=== PATIENT | female | born 1950 | race Caucasian/White ===

== ENCOUNTER → 2019-12-14 | Outpatient (CLI) | payer MEDICARE ==
[~2019-12-14] MED LIST: ALL10TAB29 PO; ASPI81TA85 PO; CALC600T60 PO; FLAX10002 PO; HM P99TA PO; VITA40TA PO; VITAD1000T PO; VITATAB73 PO
== END ==
LOC: EDUNIT# 09:40 → M LABSMTC 09:44
PROVIDERS: ATTEND Anesthesiology
DX: Z01.818 Encounter for other preprocedural examination (principal); Z11.59 Encounter for screening for other viral diseases; Z03.818 Encounter for observation for suspected exposure to other biological agents ruled out
CPT/HCPCS: C9803; U0003

== ENCOUNTER 2019-12-17 09:28 | Day surgery (SDC) | payer MEDICARE ==
[~2019-12-17] VITALS: Ht 154.9 cm; Wt 83.4 kg
[~2019-12-17 09:28] MED LIST changes: +BUPIVACAINE/EPIN 0.25% 30 ML VIAL As Ordered ONE; +LR 1,000 ML IV ONE
[2019-12-17] MEDS ORDERED: ROCURONIUM BROMIDE 50 MG/5 ML VIAL As Ordered ONE (09:48)
[2019-12-17] MEDS ORDERED: fentaNYL 250 MCG/5 ML INJECTION (J3010) As Ordered ONE (09:48)
[2019-12-17] MEDS ORDERED: LIDOCAINE 2% 100MG/5ML SDV (FOR ANES.) As Ordered ONE (09:48)
[2019-12-17] MEDS ORDERED: propofoL 200 MG/20 ML VIAL As Ordered ONE (09:48)
[2019-12-17] MEDS ORDERED: MIDAZOLAM INJ 2MG/2ML VIAL (J2250 PER 1MG) As Ordered ONE (09:48)
[2019-12-17] MEDS ORDERED: SUCCINYLCHOLINE 100 MG/5 ML SYRINGE (J0330) As Ordered ONE (11:45)
[2019-12-17] MEDS ORDERED: ACETAMINOPHEN 1000MG 100ML IV BTL (OFIRMEV) (J0131 PER 10MG) As Ordered ONE (11:45)
[2019-12-17] MEDS ORDERED: KETOROLAC 60 MG/2 ML VIAL As Ordered ONE (11:46)
[2019-12-17] MEDS ORDERED: ONDANSETRON 4MG/2ML VIAL As Ordered ONE (11:46)
[2019-12-17] MEDS ORDERED: dexameTHASONE 4 MG/ML 1ML VIAL (J1100 PER 1MG) As Ordered ONE (11:46)
[2019-12-17] MEDS ORDERED: SUGAMMADEX SODIUM 500 MG/5 ML VIAL (BRIDION) As Ordered ONE (11:57)
[2019-12-17] MEDS ORDERED: fentaNYL 100 MCG/2 ML INJECTION (J3010) IV PRN (12:45)
[2019-12-17] MEDS ORDERED: LR 1,000 ML IV SCH (12:45)
[2019-12-17] MEDS ORDERED: NORCO, ANEXSIA 5/325MG TABLET (HYDROcodone/ACETAMINOPHEN) PO PRN (12:45)
[2019-12-17] MEDS ORDERED: ONDANSETRON 4MG/2ML VIAL IV PRN (12:45)
[2019-12-17] MEDS ORDERED: oxyCODONE 5MG TAB PO PRN (12:45)
[2019-12-17 14:30] VITALS: BP 137/82
--- NOTE | 2019-12-22 14:28 | RO ---
DATE OF PROCEDURE: 12/17/2019 PREOPERATIVE DIAGNOSIS: Symptomatic cholelithiasis. POSTOPERATIVE DIAGNOSIS: Symptomatic cholelithiasis. PROCEDURE: Robotic cholecystectomy. SURGEON: Dr. Long SOAP WORKER: Audrey Sharp NP ANESTHESIA: General. ESTIMATED BLOOD LOSS (EBL): 5. COMPLICATIONS: None. INDICATIONS FOR PROCEDURE: The patient is a 69-year-old female that presents with right upper quadrant pain and found have symptomatic cholelithiasis. Recommendation was to proceed with robotic cholecystectomy. Risks and benefits of procedure not limited but including bleeding, infection, hernia formation, damage to surrounding structure, need for further surgery were discussed in detail with the patient. Informed consent was obtained and procedure was planned. DESCRIPTION OF PROCEDURE: The patient was brought back to operating room #7. After sufficient sedation, the abdomen sterilely prepped and draped. Next, a time-out done to confirm proper patient and proper procedure. Following that an 8 mm incision was made in left lower quadrant. Veress needle inserted and the was abdomen was insufflated to 50 mmHg. Veress needle was then removed. An 8 mm robotic Optiview port used to gain access to the abdomen. Once the abdomen was entered, three more ports were placed across the upper abdomen. Once the ports were placed, the robot was docked to the ports. Next, the fundus of gallbladder was elevated up towards the right shoulder. The cystic duct and cystic artery were easily identified and they were both doubly clipped and cut. The gallbladder was then dissected free from the gallbladder fossa using electrocautery. Once the gallbladder was removed, it was placed inside of a 5 mm Endo Catch bag and brought through the right lateral port site. It was removed without any complications. The abdomen was then desufflated. Skin incisions closed with #4-0 Vicryl subcuticular sutures. The abdomen was cleaned and dried. Steri-Strips, 4 x 4 and tape were applied, thus ending procedure.
== END 2019-12-17 14:54 | disposition home or self-care (01) ==
LOC: M SDC 09:28
PROVIDERS: ATTEND Surgery
DX: K80.10 Calculus of gallbladder with chronic cholecystitis without obstruction (principal); K21.9 Gastro-esophageal reflux disease without esophagitis; Z79.82 Long term (current) use of aspirin; Z79.899 Other long term (current) drug therapy; Z88.0 Allergy status to penicillin
CPT/HCPCS: 47562; 88304; J0131; J0330; J1100; J1885; J2250; J2405; J3010